=== PATIENT | male | born 1990 ===

== ENCOUNTER 2017-10-28 20:10 | Emergency (ER) | payer SELFPAY ==
[2017-10-28 20:29] VITALS: BP 143/81; PULSE 71; RESP 20; TEMP 98; O2SAT 100
--- NOTE | 2017-10-28 21:17 | C.PDOC ---
History Of Present Illness 27 yr old male presents to the ER stating 3 days ago he was eating chicken and believes a chicken bone is stuck in his throat. Patient reports he tried to stick a finger down his throat to take it out but was unable to. Patient also reports of bilateral ear pain. Patient denies difficulty in swallowing, chest pain, SOB, nausea, vomiting, ear discharge or neck pain. Time Seen by Provider: 10/28/17 20:32 Chief Complaint (Nursing): ENT Problem History Per: Patient History/Exam Limitations: None Onset/Duration Of Symptoms: Days (3) Current Symptoms Are (Timing): Still Present Pain Scale Rating Of: 1 Anticoagulant/Antiplatlet Use?: No Past Medical History Reviewed: Historical Data, Nursing Documentation, Vital Signs Vital Signs: Last Vital Signs Temp 98 F 10/28/17 20:26 Pulse 71 10/28/17 20:26 Resp 20 10/28/17 20:26 BP 143/81 10/28/17 20:26 Pulse Ox 100 10/28/17 22:10 - Medical History PMH: No Chronic Diseases Family History: States: No Known Family Hx - Social History Hx Alcohol Use: No Hx Substance Use: No - Immunization History Hx Tetanus Toxoid Vaccination: No Hx Influenza Vaccination: No Hx Pneumococcal Vaccination: No Review Of Systems Except As Marked, All Systems Reviewed And Found Negative. ENT: Positive for: Ear Pain (Bilateral), Other ((+) Chicken bone in throat). Negative for: Ear Discharge Cardiovascular: Negative for: Chest Pain Respiratory: Negative for: Shortness of Breath Gastrointestinal: Negative for: Nausea, Vomiting Musculoskeletal: Negative for: Neck Pain Physical Exam - Physical Exam Appears: Non-toxic, No Acute Distress Skin: Warm, Dry, No Rash Head: Atraumatic, Normacephalic Eye(s): bilateral: Normal Inspection, PERRL, EOMI Ear(s): Bilateral: Normal Oral Mucosa: Moist Tongue: Normal Appearing, No Swelling Lips: Normal Appearing Throat: Normal, No Erythema, No Exudate, No Drooling, No Mass, Other (No foreign body seen in posterior pharynx. No swelling) Neck: Normal, Normal ROM, Supple Chest: Symmetrical Cardiovascular: Rhythm Regular, No Friction Rub, No Murmur Respiratory: Normal Breath Sounds, No Rales, No Rhonchi, No Stridor, No Wheezing Gastrointestinal/Abdominal: Normal Exam, Soft, No Tenderness, No Guarding, No Rebound Extremity: Normal ROM, No Swelling Neurological/Psych: Oriented x3, Normal Speech, Normal Motor, Normal Sensation Gait: Steady ED Course And Treatment O2 Sat by Pulse Oximetry: 100 (RA) Pulse Ox Interpretation: Normal - CT Scan/US CT - Neck Soft Tissue Other Rad Studies (CT/US): Read By Radiologist CT/US Interpretation: Radiopaque foreign body seen embedded within the right tonsil Medical Decision Making Medical Decision Making: PLAN: * CT - Neck Soft Tissue The patient was evaluated by Dr. Dunaway at bedside who states he does not visualize any foreign body as well. Case was discussed with Dr. Ulloa and CT images reviewed, who states to give antibiotics and that the patient will most likely need non-emergeny tonsillectomy. Dr. Ulloa called again and states he come in to consult on the patient. Dr. ulloa in house and removed the foreign body from tonsils. Disposition - Disposition Referrals: Eitan Ulloa MD [Staff Provider] - Disposition: HOME/ ROUTINE Disposition Time: 22:01 Condition: GOOD Additional Instructions: Follow up with the ENT without fail in 1-2 days. Return if worsened. Prescriptions: Amoxicillin/Clavulanate [Augmentin 875 MG-125 MG] 1 tab PO BID #14 tab Instructions: Soft Tissue Foreign Body (ED) Forms: [employer] (Greek) Print Language: GHANAIAN - Clinical Impression Clinical Impression: Foreign body of tonsil - PA / SENIOR APPLICATIONS ANALYST / Resident Statement MD/DO has reviewed & agrees with the documentation as recorded. - Scribe Statement The provider has reviewed the documentation as recorded by the Scribe Elena Rendon All medical record entries made by the Fioribflor were at my direction and personally dictated by me. I have reviewed the chart and agree that the record accurately reflects my personal performance of the history, physical exam, medical decision making, and the department course for this patient. I have also personally directed, reviewed, and agree with the discharge instructions and disposition.
--- NOTE | 2017-10-28 21:28 | CT ---
EXAM: CT Neck Without Intravenous Contrast CLINICAL HISTORY: 27 years old, male; Injury or trauma; Injury Chicken bone in right side of throat; Initial encounter; Abrasion; Additional info: Possible chicken bone stuck TECHNIQUE: Axial computed tomography images of the neck without intravenous contrast. All CT scans at this facility use one or more dose reduction techniques, viz.: automated exposure control; ma/kV adjustment per patient size (including targeted exams where dose is matched to indication; i.e. head); or iterative reconstruction technique. Coronal and sagittal reformatted images were created and reviewed. COMPARISON: No relevant prior studies available. FINDINGS: Limitations: Lack of intravenous contrast. Nasopharynx: Unremarkable. Oropharynx: 0.7 x 0.2 x 0.2 cm linear radiopaque foreign body embedded within RIGHT palatine tonsil. Hypopharynx: Unremarkable. Larynx: Unremarkable. Normal epiglottis. Trachea: Unremarkable. Retropharyngeal space: Unremarkable. Submandibular/parotid glands: Glands are normal in size. Thyroid: 1.1 x 0.9 x 1.3 cm cyst or nodule within LEFT lobe. Bones/joints: No acute fracture. Soft tissues: Unremarkable as visualized. Vasculature: No acute findings. Lymph nodes: No pathologically enlarged lymph nodes. Lung apices: Unremarkable as visualized. IMPRESSION: 1. Foreign body within RIGHT palatine tonsil. 2. Thyroid nodule. Followup as clinically warranted.
[2017-10-28] MEDS ORDERED: Amoxicillin-Clav 875-125 mg Tab PO STA (22:03)
[2017-10-28] MEDS ORDERED: Amoxicillin-Clav 875-125 mg Tab PO ONE (22:10)
--- NOTE | 2017-10-28 23:12 | OP ---
PROCEDURE DATE: 10/28/2017 PREOPERATIVE DIAGNOSIS: Foreign body in the right tonsil. POSTOPERATIVE DIAGNOSIS: Foreign body in the right tonsil. PROCEDURE: Removal of foreign body of right tonsil. DESCRIPTION OF PROCEDURE: The patient was placed in a seated position. The right tonsil was brought into view using direct visualization. The tip of the bone was noted. Tonsil clamp was used to pull the bone out of the throat. The patient tolerated the procedure well. Eitan Ulloa MD
== END 2017-10-28 23:06 | disposition home or self-care (01) ==
LOC: C.ER 20:10
DX: T17.298A Other foreign object in pharynx causing other injury, initial encounter (principal); X58.XXXA Exposure to other specified factors, initial encounter; Y92.89 Other specified places as the place of occurrence of the external cause

== ENCOUNTER 2018-02-28 23:12 | Emergency (ER) | payer SELFPAY ==
[~2018-02-28 23:12] MED LIST: Sodium Chloride 0.9% 1,000 ML IV ONE
[2018-02-28 23:29] VITALS: BMI 20.5
[2018-03-01 00:19] LABS: URINE BILIRUBIN NEGATIVE (NEGATIVE); URINE BLOOD NEGATIVE (NEGATIVE); URINE CLARITY Clear (Clear); URINE COLOR YELLOW (YELLOW); URINE GLUCOSE (UA) Normal (Normal); URINE PROTEIN NEGATIVE (NEGATIVE); URINE UROBILINOGEN Normal mg/dL (0.2-1.0)
[2018-03-01 00:20] LABS: URINE LEUKOCYTE ESTERASE NEGATIVE Leu/uL (Negative)
--- NOTE | 2018-03-01 01:06 | C.PDOC ---
Time Seen by Provider: 02/28/18 23:25 Chief Complaint (Nursing): Abdominal Pain History Per: Patient Onset/Duration Of Symptoms: Days (2) Current Symptoms Are (Timing): Still Present Severity: Moderate Location Of Pain/Discomfort: LLQ Radiation Of Pain To:: Flank Quality Of Discomfort: "Pain" Associated Symptoms: Back Pain Exacerbating Factors: None Alleviating Factors: None Additional History Per: Prior Records Past Medical History Reviewed: Historical Data, Nursing Documentation, Vital Signs Vital Signs: Last Vital Signs Temp 97.7 F 03/01/18 00:38 Pulse 58 L 03/01/18 00:38 Resp 18 03/01/18 00:38 BP 128/79 03/01/18 00:38 Pulse Ox 99 03/01/18 01:08 - Medical History PMH: No Chronic Diseases Surgical History: No Surg Hx Family History: States: Unknown Family Hx - Social History Hx Alcohol Use: No Hx Substance Use: No - Immunization History Hx Tetanus Toxoid Vaccination: No Hx Influenza Vaccination: No Hx Pneumococcal Vaccination: No Review Of Systems Except As Marked, All Systems Reviewed And Found Negative. Constitutional: Negative for: Fever Cardiovascular: Negative for: Chest Pain Respiratory: Negative for: Shortness of Breath Gastrointestinal: Positive for: Abdominal Pain. Negative for: Vomiting, Diarrhea Genitourinary: Negative for: Dysuria, Scrotal Pain Musculoskeletal: Negative for: Neck Pain Skin: Negative for: Rash Neurological: Negative for: Weakness, Numbness Physical Exam - Physical Exam Appears: Non-toxic, No Acute Distress Skin: Normal Color, Warm, Dry, No Rash Head: Atraumatic, Normacephalic Eye(s): bilateral: Normal Inspection, PERRL, EOMI Neck: Normal ROM, Supple Cardiovascular: Rhythm Regular Respiratory: Normal Breath Sounds, No Accessory Muscle Use Gastrointestinal/Abdominal: Soft, Tenderness (mild LLQ) Back: CVA Tenderness (mild left) Extremity: Normal ROM Neurological/Psych: Oriented x3, Normal Motor, Normal Sensation ED Course And Treatment - Laboratory Results Lab Interpretation: No Acute Changes O2 Sat by Pulse Oximetry: 99 Pulse Ox Interpretation: Normal Disposition - Disposition Disposition Time: 01:00 Condition: STABLE - Clinical Impression Clinical Impression: Left flank pain Physician Patient Turnover Patient Signed Over To: Corey Young Handoff Comments: to f/up CT scan of abd/pelv and reassess/dispo pt.
--- NOTE | 2018-03-01 01:34 | CT ---
EXAM: CT Abdomen and Pelvis Without Intravenous Contrast CLINICAL HISTORY: 28 years old, male; Pain; Abdominal pain; Additional info: Lt flank pain TECHNIQUE: Axial computed tomography images of the abdomen and pelvis without intravenous contrast. All CT scans at this facility use one or more dose reduction techniques, viz.: automated exposure control; ma/kV adjustment per patient size (including targeted exams where dose is matched to indication; i.e. head); or iterative reconstruction technique. Coronal and sagittal reformatted images were created and reviewed. COMPARISON: No relevant prior studies available. FINDINGS: Lung bases: There is minimal bibasilar atelectasis. ABDOMEN: Liver: The liver is within normal limits for this noncontrast study. Gallbladder and bile ducts: The gallbladder is contracted but otherwise normal. No calcified stones. No ductal dilation. Pancreas: Unremarkable. No ductal dilation. Spleen: Unremarkable. No splenomegaly. Adrenals: Unremarkable. No mass. Kidneys and ureters: Unremarkable. No obstructing stones. No hydronephrosis. Stomach and bowel: Unremarkable. No obstruction. No mucosal thickening.There is no wall thickening or pericolonic stranding to suggest colitis. Appendix: A normal appendix is identified. PELVIS: Bladder: Unremarkable. No stones. Reproductive: Unremarkable as visualized. ABDOMEN and PELVIS: Intraperitoneal space: Unremarkable. No free air. No significant fluid collection. Bones/joints: No acute fracture. No dislocation. Soft tissues: Unremarkable. Vasculature: Unremarkable. No abdominal aortic aneurysm. Lymph nodes: Unremarkable. No enlarged lymph nodes. IMPRESSION: No acute intra-abdominal or pelvic abnormality. No nephrolithiasis or obstructive uropathy.
[2018-03-01 01:49] VITALS: BP 124/76; PULSE 61; RESP 19; TEMP 98.1; O2SAT 98
[2018-03-01 11:01] LABS: BASO # 0.1 K/uL (0.0-0.2); BASO % 0.8 % (0.0-2.0); EOS # 0.2 K/uL (0.0-0.7); HEMOGLOBIN 15.3 g/dL (12.0-18.0); LYMPH # 2.2 K/uL (1.0-4.3); LYMPH % 36.3 % (20.0-40.0); MEAN CELL VOLUME 86.5 fL (80.0-94.0); MEAN CORPUSCULAR HEMOGLOBIN 30.5 pg (27.0-31.0); MEAN CORPUSCULAR HGB CONC 35.3 g/dL (33.0-37.0); MEAN PLATELET VOLUME 8.5 fL (7.2-11.7); MONO # 0.8 K/uL (0.0-0.8); MONO % 13.3 % (0.0-10.0); NEUT # 2.9 K/uL (1.8-7.0); NEUT % 46.6 % (50.0-75.0); NRBC % 0.2 % (0.0-2.0); RBC 5.02 Mil/uL (4.40-5.90); RED CELL DISTRIBUTION WIDTH 12.6 % (11.5-14.5); WHITE BLOOD COUNT 6.2 K/uL (4.8-10.8)
[2018-03-01 11:15] LABS: BLOOD UREA NITROGEN 17 mg/dL (9-20); CALCIUM 8.9 mg/dl (8.6-10.4); GFR AFRICAN-AMERICAN > 60; GFR NON-AFRICAN AMERICAN > 60
[2018-03-01 11:16] LABS: ALB/GLOB RATIO 1.2 (1.0-2.1); ALBUMIN 4.3 g/dL (3.5-5.0); ALT/SGPT 36 U/L (21-72); AST/SGOT 38 U/L (17-59); LIPASE 74 U/L (23-300)
== END 2018-03-01 01:50 | disposition home or self-care (01) ==
LOC: C.ER 23:12
DX: K59.00 Constipation, unspecified (principal); R10.32 Left lower quadrant pain
CPT/HCPCS: 74176; 80053; 81001; 83690; 85025; 87086; 96374; 99282; J1885; J7040